=== PATIENT | female | born 1990 | race American Indian/Alaskan Native ===

== ENCOUNTER 2020-05-02 12:25 | Emergency (ER) | payer SELFPAY ==
[2020-05-02] MEDS ORDERED: SODIUM CHLORIDE 0.9% 1000 ML IV SOLN IV ONE (12:29)
[2020-05-02 12:30] VITALS: BP 96/67
--- NOTE | 2020-05-02 12:32 | Emergency Department Report ---
Blank Doc - Documentation Documentation: 29-year-old female that presents with n/v and abd pain. Hypotensive and tachycardia in triage. Stated has chills and subjective fevers at home. 1- This initial assessment/diagnostic orders/clinical plan/ treatment(s) is/are subject to change based on pt's health status, clinical progression and re- assessment by fellow clinical providers in the ED. Further treatment and workup at subsequent clinical provers discretion. Patient/guardians urged not to elope from ED as their condition may be serious if not clinically assessed and managed. 2-sepsis workup
[2020-05-02 12:51] LABS: Bilirubin,Urine NEG (Negative); Blood,Urine MOD (Negative); Color,Urine Yellow (Yellow); Mucus,Urine 3+ /HPF; Urobilinogen,Urine < 2.0 mg/dL (<2.0)
[2020-05-02 13:20] LABS: Basophils % (Auto) 0.3 % (0.0-1.8); Hematocrit 42.7 % (30.3-42.9); Lymphocytes # (Auto) 0.7 K/mm3 (1.2-5.4); Mean Corpuscular HGB Conc 33 % (30-34); Mean Corpuscular Volume 82 fl (79-97); Monocytes # (Auto) 0.3 K/mm3 (0.0-0.8); Monocytes % (Auto) 3.2 % (0.0-7.3); Platelet Count 312 K/mm3 (140-440); Red Blood Count 5.19 M/mm3 (3.65-5.03); Red Cell Distribution Width 14.4 % (13.2-15.2)
[2020-05-02 13:53] LABS: Alanine Aminotransferase 14 units/L (7-56); Albumin 4.4 g/dL (3.9-5); Blood Urea Nitrogen 18 mg/dL (7-17); Calcium 9.2 mg/dL (8.4-10.2); Hemolysis Index 74
[2020-05-02 13:57] LABS: BUN/Creatinine Ratio 26
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
== END 2020-05-02 17:15 | disposition left against medical advice (07) ==
LOC: ED 12:25
DX: R10.9 Unspecified abdominal pain (principal)
CPT/HCPCS: 36415; 74022; 80053; 81001; 82140; 83690; 84703; 85025; 87040; 99283

== ENCOUNTER 2020-06-01 14:37 | Emergency (ER) | payer OTHER ==
[2020-06-01 15:45] VITALS: BP 118/60
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
== END 2020-06-01 17:05 | disposition home or self-care (01) ==
LOC: ED 14:37
DX: S80.02XA Contusion of left knee, initial encounter (principal); Z79.899 Other long term (current) drug therapy; V49.59XA Passenger injured in collision with other motor vehicles in traffic accident, initial encounter; Y92.410 Unspecified street and highway as the place of occurrence of the external cause; Y93.89 Activity, other specified; Y99.8 Other external cause status